=== PATIENT | male | born 1945 | race Caucasian/White ===

== ENCOUNTER 2019-05-20 14:41 | Emergency (ER) | payer MEDICARE, OTHER ==
[~2019-05-20] VITALS: Ht 182.9 cm; Wt 72.7 kg
[2019-05-20] MEDS ORDERED: INCR1INH INH (15:02)
[2019-05-20] MEDS ORDERED: ATOR1TAB19 PO (15:02)
[2019-05-20] MEDS ORDERED: VERA120C3 PO (15:02)
[2019-05-20] MEDS ORDERED: PROAAER10 INH (15:02)
[2019-05-20] MEDS ORDERED: ASPI81TA21 PO (15:02)
[2019-05-20] MEDS ORDERED: ADVA115A INH (15:02)
[2019-05-20] MEDS ORDERED: XARE20TA PO (15:02)
[2019-05-20] MEDS ORDERED: BISO10TA13 PO (15:02)
[2019-05-20] MEDS ORDERED: DIGO0.123 PO (15:02)
[2019-05-20 16:23] LABS: BASO # 0.1 10^3/uL (0.0-0.2); BASO % 1.1 % (0.0-1.0); EOS # 0.7 10^3/uL (0.0-0.50); EOS % 11.7 % (0.0-3.0); HEMATOCRIT 37.2 % (42.0-52.0); HEMOGLOBIN 12.3 g/dl (13.5-17.5); LYMPH % 15.4 % (24.0-44.0); MEAN CORPUSCULAR HEMOGLOBIN 31.1 pg (27.0-33.0); MEAN CORPUSCULAR HGB CONC 33.1 g/dl (32.0-36.5); MEAN CORPUSCULAR VOLUME 94.2 fl (80.0-96.0); MONO # 0.9 10^3/uL (0.0-0.8); MONO % 14.1 % (0.0-5.0); NEUTROPHILS # 3.6 10^3/uL (1.8-7.7); NEUTROPHILS % 57.5 % (36.0-66.0); PLATELET COUNT, AUTOMATED 166 10^3/uL (150-450); RED BLOOD COUNT 3.95 10^6/uL (4.30-6.10); WHITE BLOOD COUNT 6.3 10^3/uL (4.0-10.0)
[2019-05-20 16:36] LABS: BLOOD UREA NITROGEN 19 MG/DL (7-18); CARBON DIOXIDE LEVEL 32 MEQ/L (21-32); CHLORIDE LEVEL 107 MEQ/L (98-107); CREATININE FOR GFR 0.63 MG/DL (0.70-1.30); GLOMERULAR FILTRATION RATE > 60.0 (>42); GLUCOSE, FASTING 81 MG/DL (70-100); POTASSIUM SERUM 4.3 MEQ/L (3.5-5.1); SODIUM LEVEL 141 MEQ/L (136-145)
[2019-05-20 16:37] LABS: INR 1.3; PROTHROMBIN TIME 15.9 SECONDS (11.8-14.0)
[2019-05-20 16:38] LABS: PARTIAL THROMBOPLASTIN TIME 35.3 SECONDS (25.0-38.4)
[2019-05-20 17:39] VITALS: BP 117/68
== END 2019-05-20 17:40 | disposition home or self-care (01) ==
LOC: M ED 14:41
DX: L76.22 Postprocedural hemorrhage of skin and subcutaneous tissue following other procedure (principal); Z79.899 Other long term (current) drug therapy; Z79.82 Long term (current) use of aspirin; Z79.01 Long term (current) use of anticoagulants; F17.210 Nicotine dependence, cigarettes, uncomplicated

== ENCOUNTER 2023-05-05 09:11 | Day surgery (SDC) | payer MEDICARE, OTHER ==
[~2023-05-05] VITALS: Ht 182.9 cm; Wt 65.8 kg
[~2023-05-05 09:11] MED LIST: ADVA115A INH; ASPI81TA21 PO; ATOR1TAB19 PO; BISO10TA13 PO; BSS IRRIG/VANCO(10MG)/TOBRA(5MG)/EPINEPH(1:1000-0.5CC)500ML BAG-ORONLY IR ONE; CEFUROXIME 1MG/0.1ML INTRACAMERAL INJ As Ordered ONE; CYCLOPENTOLATE 1% OPHTH SOLN 2ML BTL OS SCH; DIGO0.123 PO; FURO20TA2 PO; INCR1INH INH; LIDOCAINE 1% SDV 5ML VIAL As Ordered ONE; LIDOCAINE 3.5 % 1ML OPHTH TOPICAL GEL OU ONE; MIDAZOLAM INJ 2MG/2ML VIAL As Ordered ONE; MIDO5TA PO; MIRT-84 PO; NITR-67 PO; OFLOXACIN 0.3 % (OCUFLOX) OPTH SOL 5ML OS ONE; OMEP40CA4 PO; OXYGEN; PERF20NE2 INH; PHENYLEPHRINE 10% OPHTH SOL 5ML OS PRN; PHENYLEPHRINE 2.5% OPHTH SOL 2ML OS SCH; PROAAER10 INH; QUET1TAB17 PO; TROPICAMIDE 1% OPHTH SOLN 15ML OS SCH; VERA120C3 PO; XARE20TA PO; YUPE175S IN; fentaNYL 100 MCG/2 ML INJECTION As Ordered ONE
[2023-05-05 12:30] VITALS: BP 149/83; TEMP 97.3; O2SAT 94
== END 2023-05-05 12:55 | disposition home or self-care (01) ==
LOC: M SDC 09:11
PROVIDERS: ATTEND Ophthalmology
DX: H25.12 Age-related nuclear cataract, left eye (principal); I48.0 Paroxysmal atrial fibrillation; F17.210 Nicotine dependence, cigarettes, uncomplicated; Z95.0 Presence of cardiac pacemaker; Z79.01 Long term (current) use of anticoagulants; J44.9 Chronic obstructive pulmonary disease, unspecified; Z92.3 Personal history of irradiation; Z92.21 Personal history of antineoplastic chemotherapy; Z85.51 Personal history of malignant neoplasm of bladder; F32.A Depression, unspecified; F41.9 Anxiety disorder, unspecified; G47.33 Obstructive sleep apnea (adult) (pediatric); Z88.1 Allergy status to other antibiotic agents
CPT/HCPCS: 66984; J0697; J2250; J3010; V2632

== ENCOUNTER 2023-05-19 08:38 | Day surgery (SDC) | payer MEDICARE, OTHER ==
[~2023-05-19] VITALS: Ht 182.9 cm; Wt 65.3 kg
[~2023-05-19 08:38] MED LIST changes: +CYCLOPENTOLATE 1% OPHTH SOLN 2ML BTL OD SCH; -CYCLOPENTOLATE 1% OPHTH SOLN 2ML BTL OS SCH; -OFLOXACIN 0.3 % (OCUFLOX) OPTH SOL 5ML OS ONE; +PHENYLEPHRINE 10% OPHTH SOL 5ML OD PRN; -PHENYLEPHRINE 10% OPHTH SOL 5ML OS PRN; +PHENYLEPHRINE 2.5% OPHTH SOL 2ML OD SCH; -PHENYLEPHRINE 2.5% OPHTH SOL 2ML OS SCH; +TOBRAMYCIN 0.3% OPHTH SOLN 5ML OD ONE; +TROPICAMIDE 1% OPHTH SOLN 15ML OD SCH; -TROPICAMIDE 1% OPHTH SOLN 15ML OS SCH
[2023-05-19 11:24] VITALS: BP 134/77; TEMP 97.6; O2SAT 95
== END 2023-05-19 11:35 | disposition home or self-care (01) ==
LOC: M SDC 08:38
PROVIDERS: ATTEND Ophthalmology
DX: H25.11 Age-related nuclear cataract, right eye (principal); I48.91 Unspecified atrial fibrillation; Z95.0 Presence of cardiac pacemaker; F17.210 Nicotine dependence, cigarettes, uncomplicated; K21.9 Gastro-esophageal reflux disease without esophagitis; F41.9 Anxiety disorder, unspecified; F32.A Depression, unspecified; F03.90 Unspecified dementia, unspecified severity, without behavioral disturbance, psychotic disturbance, mood disturbance, and anxiety; Z85.51 Personal history of malignant neoplasm of bladder; Z92.21 Personal history of antineoplastic chemotherapy; Z92.3 Personal history of irradiation; Z88.8 Allergy status to other drugs, medicaments and biological substances; G47.33 Obstructive sleep apnea (adult) (pediatric)
CPT/HCPCS: 66984; J0697; J2250; J3010; V2632

== ENCOUNTER → 2023-09-30 | Outpatient (REF) | payer OTHER ==
[~2023-09-30] MED LIST changes: -BSS IRRIG/VANCO(10MG)/TOBRA(5MG)/EPINEPH(1:1000-0.5CC)500ML BAG-ORONLY IR ONE; -CEFUROXIME 1MG/0.1ML INTRACAMERAL INJ As Ordered ONE; -CYCLOPENTOLATE 1% OPHTH SOLN 2ML BTL OD SCH; -LIDOCAINE 1% SDV 5ML VIAL As Ordered ONE; -LIDOCAINE 3.5 % 1ML OPHTH TOPICAL GEL OU ONE; -MIDAZOLAM INJ 2MG/2ML VIAL As Ordered ONE; -PHENYLEPHRINE 10% OPHTH SOL 5ML OD PRN; -PHENYLEPHRINE 2.5% OPHTH SOL 2ML OD SCH; -TOBRAMYCIN 0.3% OPHTH SOLN 5ML OD ONE; -TROPICAMIDE 1% OPHTH SOLN 15ML OD SCH; -fentaNYL 100 MCG/2 ML INJECTION As Ordered ONE
== END ==
LOC: M SFHCDERM 14:49
PROVIDERS: ATTEND Physician Assistant
DX: D48.5 Neoplasm of uncertain behavior of skin (principal); Z85.828 Personal history of other malignant neoplasm of skin